=== PATIENT | female | born 1990 | race African-American/Black ===

== ENCOUNTER 2018-07-04 17:43 | Emergency (ER) | payer MEDICAID ==
[~2018-07-04] VITALS: Ht 165.1 cm; Wt 130.0 kg
[2018-07-04] MEDS ORDERED: METF-414 PO (17:50)
[2018-07-04] MEDS ORDERED: INSULIN (17:50)
[2018-07-04] MEDS ORDERED: SODIUM CHLORIDE 0.9% 1,000 ML IV ONE (21:19)
[2018-07-04] MEDS ORDERED: MAGNESIUM/ALUMINUM HYDROXIDE/SIMETHICONE 30ML UDC PO STA (21:19)
[2018-07-04] MEDS ORDERED: KETOROLAC 30MG/ML VIAL IV STA (21:19)
[2018-07-04] MEDS ORDERED: ONDANSETRON HCL 4MG/2ML INJ IV STA (21:19)
[2018-07-04] MEDS ORDERED: FAMOTIDINE 20MG/2ML VIAL IV STA (21:19)
[2018-07-04] MEDS ORDERED: HYDRALAZINE 20MG/ML VIAL IV ONE (21:45)
[2018-07-04 22:03] LABS: BASOPHILS % 0.9 % (0.0-2.0); LYMPHOCYTES % 9.4 % (20.0-50.0); MEAN CORPUSCULAR HEMOGLOBIN 25.2 pg (28.0-32.0); MEAN CORPUSCULAR VOLUME 77.4 fL (81.0-99.0); MEAN PLATELET VOLUME 10.2 fl (7.4-10.4); MONOCYTES % 3.2 % (2.0-8.0); NEUTROPHILS % 86.5 % (40.0-76.0); PLATELET 303 x1000/uL (130-400); RED BLOOD CELL COUNT 5.55 mill/uL (4.2-5.4); RED CELL DISTRIBUTION WIDTH 14.4 % (11.6-14.6)
[2018-07-04 22:09] LABS: CHLORIDE 95 mEq/L (98-107)
[2018-07-04 22:10] LABS: HCG SCREEN NEGATIVE
[2018-07-04] MEDS ORDERED: MORPHINE SULFATE 10 MG/ML CPJ IV NR (23:45)
[2018-07-05] MEDS ORDERED: MORPHINE SULFATE 4 MG/ML CPJ (NOT FOR IM USE) IV ONE
[2018-07-05 00:29] LABS: CLARITY URINE CLOUDY (CLEAR); COLOR URINE ORANGE (YELLOW); KETONES URINE 3+ (NEGATIVE); LEUKOCYTE ESTERASE URINE TRACE (NEGATIVE); NITRITE URINE NEGATIVE (NEGATIVE); OCCULT BLOOD URINE 3+ (NEGATIVE); PROTEIN URINE 2+ (NEGATIVE); SPECIFIC GRAVITY URINE 1.045 (1.005-1.030); UROBILINOGEN URINE 0.2 E.U./dL (0.2-1.0)
[2018-07-05] MEDS ORDERED: ONDANSETRON HCL 4MG/2ML INJ IV ONE (00:45)
[2018-07-05] MEDS ORDERED: CEFTRIAXONE 1 G PREMIX 50 ML IV ONE (00:45)
[2018-07-05 01:57] VITALS: BP 152/87
== END 2018-07-05 01:58 | disposition home or self-care (01) ==
LOC: ER 17:43
DX: N39.0 Urinary tract infection, site not specified (principal); I10 Essential (primary) hypertension; J45.909 Unspecified asthma, uncomplicated; E11.9 Type 2 diabetes mellitus without complications
CPT/HCPCS: 36415; 74177; 76700; 80053; 81003; 81025; 82962; 83690; 84703; 85025; 96361; 96365; 96375; 96376; 99284; J0696; J1885; J2270; J2405; J3490; J7030

== ENCOUNTER 2018-08-25 15:56 | Emergency (ER) | payer MEDICAID ==
[~2018-08-25] VITALS: Ht 167.6 cm; Wt 115.0 kg
[~2018-08-25 15:56] MED LIST: INSULIN; METF-414 PO
[2018-08-25] MEDS ORDERED: HYDR25TA PO (16:11)
[2018-08-25] MEDS ORDERED: ALBU05 IH (16:11)
[2018-08-25] MEDS ORDERED: KETOROLAC 30MG/ML VIAL IV STA (17:12)
[2018-08-25] MEDS ORDERED: SODIUM CHLORIDE 0.9% 1,000 ML IV ONE (17:12)
[2018-08-25] MEDS ORDERED: ONDANSETRON HCL 4MG/2ML INJ IV STA ×2 (17:12→20:21)
[2018-08-25] MEDS ORDERED: LORAZEPAM 2MG/ML CPJ IV ONE (17:30)
[2018-08-25 18:19] LABS: BASOPHILS % 0.4 % (0.0-2.0); CLARITY URINE CLEAR (CLEAR); COLOR URINE YELLOW (YELLOW); EOSINOPHILS % 0.2 % (0.0-5.0); HEMATOCRIT. 41.6 % (36.0-48.0); HEMOGLOBIN. 13.4 g/dL (12.0-16.0); KETONES URINE 1+ (NEGATIVE); LEUKOCYTE ESTERASE URINE NEGATIVE (NEGATIVE); LYMPHOCYTES % 11.5 % (20.0-50.0); MEAN CORPUSCULAR HEMOGLOBIN 25.1 pg (28.0-32.0); MEAN CORPUSCULAR VOLUME 77.6 fL (81.0-99.0); MEAN PLATELET VOLUME 9.7 fl (7.4-10.4); MONOCYTES % 3.4 % (2.0-8.0); NEUTROPHILS % 84.5 % (40.0-76.0); NITRITE URINE NEGATIVE (NEGATIVE); OCCULT BLOOD URINE NEGATIVE (NEGATIVE); PH URINE 7.5 (4.5-8.0); PLATELET 342 x1000/uL (130-400); PROTEIN URINE 2+ (NEGATIVE); RED BLOOD CELL COUNT 5.36 mill/uL (4.2-5.4); RED CELL DISTRIBUTION WIDTH 14.1 % (11.6-14.6); SPECIFIC GRAVITY URINE 1.036 (1.005-1.030); UROBILINOGEN URINE 0.2 E.U./dL (0.2-1.0)
[2018-08-25 18:21] LABS: CHLORIDE 95 mEq/L (98-107)
[2018-08-25 18:25] LABS: PROTHROMBIN TIME 10.1 sec (9.1-11.1)
[2018-08-25 18:30] LABS: *COCAINE SCREEN URINE NEGATIVE (NEGATIVE); METHADONE URINE SCREEN NEGATIVE (NEGATIVE); OPIATES URINE SCREEN NEGATIVE (NEGATIVE); PHENCYCLIDINE URINE SCREEN NEGATIVE (NEGATIVE)
[2018-08-25 18:31] LABS: *AMPHETAMINES SCREEN URINE NEGATIVE (NEGATIVE); *BARBITURATES SCREEN URINE NEGATIVE (NEGATIVE); *BENZODIAZEPINES SCREEN URINE NEGATIVE (NEGATIVE)
[2018-08-25 18:38] LABS: CANNABINOID URINE SCREEN PRESUMTIVE POSITIVE (NEGATIVE)
[2018-08-25] MEDS ORDERED: INSULIN REGULAR (HUMULIN R) 300UNITS/3ML SUBCUT ONE (19:00)
[2018-08-25] MEDS ORDERED: CAPSAICIN 0.075% CREAM 60GM TOP PRN (21:15)
[2018-08-25 22:00] VITALS: BP 147/80
== END 2018-08-25 22:01 | disposition home or self-care (01) ==
LOC: ER 16:37
DX: R10.84 Generalized abdominal pain (principal); F12.10 Cannabis abuse, uncomplicated; E11.65 Type 2 diabetes mellitus with hyperglycemia; I10 Essential (primary) hypertension; R11.10 Vomiting, unspecified; J45.909 Unspecified asthma, uncomplicated
CPT/HCPCS: 36415; 74176; 80053; 80305; 81003; 81025; 83690; 85025; 85610; 96361; 96372; 96374; 96375; 96376; 99284; J1815; J1885; J2060; J2405; J7030; Z7610

== ENCOUNTER 2018-10-01 12:50 | Emergency (ER) | payer MEDICAID, OTHER ==
[~2018-10-01] VITALS: Ht 167.6 cm; Wt 127.0 kg
[~2018-10-01 12:50] MED LIST changes: +ALBU05 IH; +HYDR25TA PO
[2018-10-01] MEDS ORDERED: MORPHINE SULFATE 4 MG/ML CPJ (NOT FOR IM USE) IV STA (12:59)
[2018-10-01] MEDS ORDERED: FAMOTIDINE 20MG/2ML VIAL IV STA (12:59)
[2018-10-01] MEDS ORDERED: ONDANSETRON HCL 4MG/2ML INJ IV STA (12:59)
[2018-10-01] MEDS ORDERED: SODIUM CHLORIDE 0.9% 1,000 ML IV ONE (12:59)
[2018-10-01 13:22] LABS: BASOPHILS % 0.5 % (0.0-2.0); EOSINOPHILS % 0.1 % (0.0-5.0); HEMATOCRIT. 37.4 % (36.0-48.0); HEMOGLOBIN. 12.3 g/dL (12.0-16.0); LYMPHOCYTES % 15.7 % (20.0-50.0); MEAN CORPUSCULAR HEMOGLOBIN 24.6 pg (28.0-32.0); MEAN PLATELET VOLUME 9.1 fl (7.4-10.4); MONOCYTES % 7.4 % (2.0-8.0); NEUTROPHILS % 76.3 % (40.0-76.0); PLATELET 261 x1000/uL (130-400); RED BLOOD CELL COUNT 4.99 mill/uL (4.2-5.4)
[2018-10-01 13:27] LABS: CHLORIDE 93 mEq/L (98-107)
[2018-10-01 13:31] LABS: ETHANOL BLOOD < 10 mg/dL; INR 1.1; PROTHROMBIN TIME 10.7 sec (9.1-11.1)
[2018-10-01 13:42] LABS: HCG SCREEN NEGATIVE
[2018-10-01 14:48] LABS: CLARITY URINE CLOUDY (CLEAR); COLOR URINE YELLOW (YELLOW); KETONES URINE TRACE (NEGATIVE); LEUKOCYTE ESTERASE URINE 2+ (NEGATIVE); NITRITE URINE NEGATIVE (NEGATIVE); OCCULT BLOOD URINE 3+ (NEGATIVE); PH URINE 8.5 (4.5-8.0); PROTEIN URINE 1+ (NEGATIVE); SPECIFIC GRAVITY URINE 1.013 (1.005-1.030); UROBILINOGEN URINE 0.2 E.U./dL (0.2-1.0)
[2018-10-01 15:30] LABS: *AMPHETAMINES SCREEN URINE NEGATIVE (NEGATIVE); *BARBITURATES SCREEN URINE NEGATIVE (NEGATIVE); *BENZODIAZEPINES SCREEN URINE NEGATIVE (NEGATIVE); *COCAINE SCREEN URINE NEGATIVE (NEGATIVE); METHADONE URINE SCREEN NEGATIVE (NEGATIVE); OPIATES URINE SCREEN NEGATIVE (NEGATIVE)
[2018-10-01 15:31] LABS: CANNABINOID URINE SCREEN NEGATIVE (NEGATIVE); PHENCYCLIDINE URINE SCREEN NEGATIVE (NEGATIVE)
[2018-10-01] MEDS ORDERED: VISCOUS LIDOCAINE 2% 15 ML UDC MM STA (16:14)
[2018-10-01] MEDS ORDERED: CEFTRIAXONE 1 G PREMIX 50 ML IV ONE (16:15)
[2018-10-01] MEDS ORDERED: MAGNESIUM/ALUMINUM HYDROXIDE/SIMETHICONE 30ML UDC PO ONE (16:15)
[2018-10-01] MEDS ORDERED: MORPHINE SULFATE 4 MG/ML CPJ (NOT FOR IM USE) IV ONE (17:15)
[2018-10-01] MEDS ORDERED: ONDANSETRON HCL 4MG/2ML INJ IV ONE (17:15)
[2018-10-01 19:07] VITALS: BP 129/91
== END 2018-10-01 19:11 | disposition home or self-care (01) ==
LOC: ER 12:50
DX: R10.13 Epigastric pain (principal); N39.0 Urinary tract infection, site not specified; E87.8 Other disorders of electrolyte and fluid balance, not elsewhere classified; I10 Essential (primary) hypertension; E11.9 Type 2 diabetes mellitus without complications; J45.909 Unspecified asthma, uncomplicated; E66.01 Morbid (severe) obesity due to excess calories; Z68.42 Body mass index [BMI] 45.0-49.9, adult; Z79.4 Long term (current) use of insulin; Z87.19 Personal history of other diseases of the digestive system
CPT/HCPCS: 36415; 74022; 76705; 80053; 80305; 80320; 81003; 81025; 83690; 83880; 84484; 84703; 85025; 85610; 87077; 87086; 87186; 93005; 96361; 96365; 96375; 96376; 99284; J0696; J2270; J2405; J3490; J7030; G0480

== ENCOUNTER 2018-10-28 12:29 | Emergency (ER) | payer OTHER ==
[~2018-10-28] VITALS: Ht 165.1 cm; Wt 103.0 kg
[2018-10-28 13:20] LABS: BASOPHILS % 0.5 % (0.0-2.0); EOSINOPHILS % 0.2 % (0.0-5.0); HEMATOCRIT. 37.4 % (36.0-48.0); HEMOGLOBIN. 12.2 g/dL (12.0-16.0); MEAN CORPUSCULAR HEMOGLOBIN 24.4 pg (28.0-32.0); MEAN CORPUSCULAR VOLUME 74.7 fL (81.0-99.0); MEAN PLATELET VOLUME 9.2 fl (7.4-10.4); MONOCYTES % 6.1 % (2.0-8.0); NEUTROPHILS % 79.2 % (40.0-76.0); PLATELET 312 x1000/uL (130-400); RED BLOOD CELL COUNT 5.01 mill/uL (4.2-5.4); RED CELL DISTRIBUTION WIDTH 15.3 % (11.6-14.6)
[2018-10-28 13:23] LABS: CHLORIDE 98 mEq/L (98-107)
[2018-10-28] MEDS ORDERED: SODIUM CHLORIDE 0.9% 1,000 ML IV ONE (13:30)
[2018-10-28] MEDS ORDERED: ONDANSETRON HCL 4MG/2ML INJ IV ONE ×2 (13:30→17:45)
[2018-10-28 13:37] LABS: HCG SCREEN NEGATIVE
[2018-10-28] MEDS ORDERED: DICYCLOMINE HCL 10MG/ML 2ML AMP IM ONE (14:00)
[2018-10-28] MEDS ORDERED: METOCLOPRAMIDE HCL 10MG/2ML VIAL IV ONE (14:00)
[2018-10-28] MEDS ORDERED: DIPHENHYDRAMINE 50MG/ML VIAL IV ONE (14:00)
[2018-10-28 14:56] LABS: CLARITY URINE CLOUDY (CLEAR); COLOR URINE YELLOW (YELLOW); KETONES URINE 1+ (NEGATIVE); LEUKOCYTE ESTERASE URINE NEGATIVE (NEGATIVE); NITRITE URINE NEGATIVE (NEGATIVE); OCCULT BLOOD URINE 3+ (NEGATIVE); PH URINE 5.5 (4.5-8.0); PROTEIN URINE 2+ (NEGATIVE); SPECIFIC GRAVITY URINE 1.036 (1.005-1.030); UROBILINOGEN URINE 0.2 E.U./dL (0.2-1.0)
[2018-10-28 15:16] LABS: *AMPHETAMINES SCREEN URINE NEGATIVE (NEGATIVE); *BARBITURATES SCREEN URINE NEGATIVE (NEGATIVE); *BENZODIAZEPINES SCREEN URINE NEGATIVE (NEGATIVE); *COCAINE SCREEN URINE NEGATIVE (NEGATIVE); METHADONE URINE SCREEN NEGATIVE (NEGATIVE); OPIATES URINE SCREEN NEGATIVE (NEGATIVE)
[2018-10-28 15:17] LABS: PHENCYCLIDINE URINE SCREEN NEGATIVE (NEGATIVE)
[2018-10-28 15:36] LABS: CANNABINOID URINE SCREEN PRESUMTIVE POSITIVE (NEGATIVE)
[2018-10-28] MEDS ORDERED: LIDOCAINE HCL/PF 1% 10 MG/ML 5ML VIAL IJ SCH (16:00)
[2018-10-28] MEDS: CEFTRIAXONE SODIUM 1 G/VIAL IM NR (16:22)
[2018-10-28] MEDS ORDERED: PANTOPRAZOLE SODIUM 40 MG/VIAL IV ONE (17:45)
[2018-10-28 18:19] VITALS: BP 196/122
== END 2018-10-28 18:50 | disposition home or self-care (01) ==
LOC: ER 12:29
DX: G89.29 Other chronic pain (principal); R10.84 Generalized abdominal pain; N39.0 Urinary tract infection, site not specified; E11.65 Type 2 diabetes mellitus with hyperglycemia; F12.10 Cannabis abuse, uncomplicated; E88.09 Other disorders of plasma-protein metabolism, not elsewhere classified; R31.9 Hematuria, unspecified; I10 Essential (primary) hypertension; Z79.4 Long term (current) use of insulin
CPT/HCPCS: 36415; 80053; 80305; 81003; 83690; 84703; 85025; 85610; 96361; 96372; 96374; 96375; 99283; C9113; J0500; J0696; J1200; J2405; J2765; J3490; J7030; Z7610

== ENCOUNTER 2018-12-03 17:47 | Emergency (ER) | payer OTHER ==
[~2018-12-03] VITALS: Ht 170.2 cm; Wt 100.0 kg
[2018-12-03] MEDS ORDERED: ONDANSETRON HCL 4MG/2ML INJ IV STA (18:05)
[2018-12-03] MEDS ORDERED: SODIUM CHLORIDE 0.9% 1,000 ML IV ONE (18:05)
[2018-12-03 18:28] LABS: BASOPHILS % 1.3 % (0.0-2.0); EOSINOPHILS % 0.3 % (0.0-5.0); HEMATOCRIT. 37.8 % (36.0-48.0); HEMOGLOBIN. 11.7 g/dL (12.0-16.0); LYMPHOCYTES % 24.3 % (20.0-50.0); MEAN CORPUSCULAR HEMOGLOBIN 22.6 pg (28.0-32.0); MEAN CORPUSCULAR VOLUME 73.3 fL (81.0-99.0); MONOCYTES % 8.5 % (2.0-8.0); NEUTROPHILS % 65.6 % (40.0-76.0); RED BLOOD CELL COUNT 5.16 mill/uL (4.2-5.4); RED CELL DISTRIBUTION WIDTH 15.3 % (11.6-14.6)
[2018-12-03 18:32] LABS: CHLORIDE 101 mEq/L (98-107)
[2018-12-03] MEDS ORDERED: FAMOTIDINE 20MG/2ML VIAL IV STA (19:00)
[2018-12-03] MEDS ORDERED: VISCOUS LIDOCAINE 2% 15 ML UDC PO STA (19:00)
[2018-12-03] MEDS ORDERED: MAGNESIUM/ALUMINUM HYDROXIDE/SIMETHICONE 30ML UDC PO STA (19:00)
[2018-12-03] MEDS ORDERED: INSULIN REGULAR (HUMULIN R) 300UNITS/3ML SUBCUT ONE (21:15)
[2018-12-03 22:06] VITALS: BP 100/55
== END 2018-12-03 22:29 | disposition home or self-care (01) ==
LOC: ER 17:55
DX: R10.13 Epigastric pain (principal); E11.65 Type 2 diabetes mellitus with hyperglycemia; I10 Essential (primary) hypertension; J45.909 Unspecified asthma, uncomplicated; F99 Mental disorder, not otherwise specified; Z79.4 Long term (current) use of insulin; Z91.14 Patient's other noncompliance with medication regimen
CPT/HCPCS: 36415; 80053; 82962; 83690; 85025; 96361; 96372; 96374; 96375; 99283; J1815; J2405; J3490; J7030; Z7610

== ENCOUNTER 2018-12-16 12:11 | Emergency (ER) | payer OTHER ==
[~2018-12-16] VITALS: Ht 162.6 cm; Wt 120.0 kg
[2018-12-16] MEDS ORDERED: SODIUM CHLORIDE 0.9% 1,000 ML IV ONE (16:15)
[2018-12-16 16:21] LABS: CHLORIDE 100 mEq/L (98-107)
[2018-12-16 16:25] LABS: BASOPHILS % 0.5 % (0.0-2.0); EOSINOPHILS % 0.4 % (0.0-5.0); HEMATOCRIT. 40.8 % (36.0-48.0); HEMOGLOBIN. 13.5 g/dL (12.0-16.0); LYMPHOCYTES % 17.8 % (20.0-50.0); MEAN CORPUSCULAR HEMOGLOBIN 24.4 pg (28.0-32.0); MEAN PLATELET VOLUME 9.4 fl (7.4-10.4); MONOCYTES % 8.2 % (2.0-8.0); NEUTROPHILS % 73.1 % (40.0-76.0); PLATELET 274 x1000/uL (130-400); RED BLOOD CELL COUNT 5.51 mill/uL (4.2-5.4); RED CELL DISTRIBUTION WIDTH 15.4 % (11.6-14.6)
[2018-12-16] MEDS ORDERED: ONDANSETRON HCL 4MG/2ML INJ IV ONE ×2 (16:45→19:30)
[2018-12-16] MEDS: FAMOTIDINE 20MG/2ML VIAL IV SCH ×2 (16:58→17:34)
[2018-12-16] MEDS ORDERED: INSULIN REGULAR (HUMULIN R) 300UNITS/3ML IV ONE (17:00)
[2018-12-16] MEDS ORDERED: TRAMADOL 50MG TABLET PO ONE (17:30)
[2018-12-16] MEDS ORDERED: KETOROLAC 30MG/ML VIAL IV ONE (17:30)
[2018-12-16] MEDS ORDERED: OXYCODONE HCL/ACETAMINOPHEN 5/325MG TABLET PO ONE (18:00)
[2018-12-16] MEDS ORDERED: CLONIDINE 0.2MG TABLET PO ONE (19:15)
[2018-12-16] MEDS ORDERED: METOCLOPRAMIDE HCL 10MG/2ML VIAL IV ONE (21:00)
[2018-12-16] MEDS ORDERED: IOHEXOL-300 100 ML BOTTLE ONE (23:00)
[2018-12-17 02:20] VITALS: BP 119/80
== END 2018-12-17 02:19 | disposition short-term general hospital (02) ==
LOC: ER 12:11 → CANBEDREQ 19:21 → ER 12-17 02:19
DX: E11.65 Type 2 diabetes mellitus with hyperglycemia (principal); I10 Essential (primary) hypertension; E86.0 Dehydration; J45.909 Unspecified asthma, uncomplicated; Z79.84 Long term (current) use of oral hypoglycemic drugs; Z91.14 Patient's other noncompliance with medication regimen
CPT/HCPCS: 36415; 74177; 80053; 81025; 82962; 83605; 85025; 96361; 96374; 96375; 96376; 99285; J1815; J1885; J2405; J2765; J3490; J7030; Q9967

== ENCOUNTER 2019-01-25 04:15 | Emergency (ER) | payer OTHER ==
[~2019-01-25] VITALS: Ht 167.6 cm; Wt 104.0 kg
[2019-01-25] MEDS ORDERED: VISCOUS LIDOCAINE 2% 15 ML UDC PO STA (06:16)
[2019-01-25] MEDS ORDERED: ONDANSETRON HCL 4MG/2ML INJ IV STA (06:16)
[2019-01-25] MEDS ORDERED: FAMOTIDINE 20MG/2ML VIAL IV STA (06:16)
[2019-01-25] MEDS ORDERED: MAGNESIUM/ALUMINUM HYDROXIDE/SIMETHICONE 30ML UDC PO STA (06:16)
[2019-01-25] MEDS ORDERED: DICYCLOMINE 10 MG/5 ML ORAL SYR PO STA (06:16)
[2019-01-25] MEDS ORDERED: MORPHINE SULFATE 4 MG/ML CPJ (NOT FOR IM USE) IV STA (06:16)
[2019-01-25 06:40] LABS: CLARITY URINE CLOUDY (CLEAR); COLOR URINE YELLOW (YELLOW); KETONES URINE 1+ (NEGATIVE); LEUKOCYTE ESTERASE URINE NEGATIVE (NEGATIVE); NITRITE URINE NEGATIVE (NEGATIVE); OCCULT BLOOD URINE 1+ (NEGATIVE); PROTEIN URINE 2+ (NEGATIVE); SPECIFIC GRAVITY URINE 1.026 (1.005-1.030); UROBILINOGEN URINE 0.2 E.U./dL (0.2-1.0)
[2019-01-25] MEDS ORDERED: KETOROLAC 30MG/ML VIAL IV ONE (08:15)
[2019-01-25 08:18] LABS: BASOPHILS % 0.5 % (0.0-2.0); HEMATOCRIT. 38.5 % (36.0-48.0); HEMOGLOBIN. 12.4 g/dL (12.0-16.0); MEAN CORPUSCULAR HEMOGLOBIN 23.8 pg (28.0-32.0); MEAN CORPUSCULAR VOLUME 73.9 fL (81.0-99.0); MEAN PLATELET VOLUME 9.3 fl (7.4-10.4); MONOCYTES % 5.5 % (2.0-8.0); PLATELET 255 x1000/uL (130-400); RED BLOOD CELL COUNT 5.21 mill/uL (4.2-5.4); RED CELL DISTRIBUTION WIDTH 15.1 % (11.6-14.6)
[2019-01-25 08:20] LABS: CHLORIDE 97 mEq/L (98-107)
[2019-01-25 08:23] LABS: HCG SCREEN NEGATIVE; PROTHROMBIN TIME 10.4 sec (9.6-11.0)
[2019-01-25 09:05] VITALS: BP 174/98
== END 2019-01-25 09:11 | disposition home or self-care (01) ==
LOC: ER 04:15
DX: N39.0 Urinary tract infection, site not specified (principal); R10.11 Right upper quadrant pain; I10 Essential (primary) hypertension; E11.9 Type 2 diabetes mellitus without complications; J45.909 Unspecified asthma, uncomplicated; Z79.4 Long term (current) use of insulin
CPT/HCPCS: 36415; 74176; 80053; 81003; 81025; 83690; 84703; 85025; 85610; 96374; 96375; 99284; J1885; J2270; J2405; J3490; Z7610

== ENCOUNTER 2019-08-05 21:37 | Inpatient (IN) | payer OTHER ==
[~2019-08-05] VITALS: Ht 160 cm; Wt 92.1 kg
[2019-08-05] MEDS ORDERED: SODIUM CHLORIDE 0.9% 1,000 ML IV ONE (22:36)
[2019-08-05] MEDS ORDERED: ONDANSETRON HCL 4MG/2ML INJ IV STA (22:36)
[2019-08-05] MEDS ORDERED: HYDRALAZINE 20MG/ML VIAL IV ONE (22:45)
[2019-08-05] MEDS ORDERED: ONDANSETRON HCL 4MG/2ML INJ IV ONE (23:00)
[2019-08-05] MEDS ORDERED: METOCLOPRAMIDE HCL 10MG/2ML VIAL IV ONE (23:00)
[2019-08-05 23:02] LABS: BASOPHILS % 0.9 % (0.0-2.0); EOSINOPHILS % 0.6 % (0.0-5.0); HCG SCREEN NEGATIVE; HEMATOCRIT. 34.3 % (36.0-48.0); HEMOGLOBIN. 11.3 g/dL (12.0-16.0); LYMPHOCYTES % 17.9 % (20.0-50.0); MEAN CORPUSCULAR HEMOGLOBIN 24.2 pg (28.0-32.0); MEAN CORPUSCULAR VOLUME 73.4 fL (81.0-99.0); MEAN PLATELET VOLUME 9.6 fl (7.4-10.4); MONOCYTES % 6.9 % (2.0-8.0); NEUTROPHILS % 73.7 % (40.0-76.0); PLATELET 214 x1000/uL (130-400); RED BLOOD CELL COUNT 4.67 mill/uL (4.2-5.4); RED CELL DISTRIBUTION WIDTH 14.7 % (11.6-14.6)
[2019-08-05 23:03] LABS: CLARITY URINE CLEAR (CLEAR); COLOR URINE YELLOW (YELLOW); KETONES URINE NEGATIVE (NEGATIVE); LEUKOCYTE ESTERASE URINE NEGATIVE (NEGATIVE); NITRITE URINE NEGATIVE (NEGATIVE); OCCULT BLOOD URINE TRACE (NEGATIVE); PH URINE >=9.0 (4.5-8.0); PROTEIN URINE 3+ (NEGATIVE); SPECIFIC GRAVITY URINE 1.014 (1.005-1.030); UROBILINOGEN URINE 0.2 E.U./dL (0.2-1.0)
[2019-08-05 23:07] LABS: CHLORIDE 99 mEq/L (98-107)
[2019-08-05 23:25] LABS: METHADONE URINE SCREEN NEGATIVE (NEGATIVE)
[2019-08-05 23:26] LABS: *AMPHETAMINES SCREEN URINE NEGATIVE (NEGATIVE); *BARBITURATES SCREEN URINE NEGATIVE (NEGATIVE); *BENZODIAZEPINES SCREEN URINE NEGATIVE (NEGATIVE); *COCAINE SCREEN URINE NEGATIVE (NEGATIVE); OPIATES URINE SCREEN NEGATIVE (NEGATIVE); PHENCYCLIDINE URINE SCREEN NEGATIVE (NEGATIVE)
[2019-08-05 23:28] LABS: CANNABINOID URINE SCREEN PRESUMTIVE POSITIVE (NEGATIVE)
[2019-08-06] VITALS (7 sets, daily range): BP systolic 119–174; BP diastolic 49–121
[2019-08-06] MEDS ORDERED: LABETALOL 5MG/ML SYR 20 MG/4 ML SYRINGE IV ONE (00:45)
[2019-08-06] MEDS ORDERED: LORAZEPAM 2MG/ML CPJ IV PRN (08:15)
[2019-08-06] MEDS ORDERED: MAGNESIUM/ALUMINUM HYDROXIDE/SIMETHICONE 30ML UDC PO PRN (08:15)
[2019-08-06] MEDS ORDERED: ONDANSETRON HCL 4MG/2ML INJ IV PRN (08:15)
[2019-08-06] MEDS ORDERED: IPRATROPIUM/ALBUTEROL 0.5-3(2.5)MG/3ML NEB NEB PRN (08:15)
[2019-08-06] MEDS ORDERED: GUAIFENESIN 200MG/10ML SUGAR FREE UDC PO PRN (08:15)
[2019-08-06] MEDS ORDERED: ACETAMINOPHEN 325MG TABLET PO PRN (08:15)
[2019-08-06] MEDS ORDERED: DIPHENHYDRAMINE 50MG/ML VIAL IV PRN (08:15)
[2019-08-06] MEDS ORDERED: CLONIDINE 0.1MG TABLET PO PRN (08:15)
[2019-08-06] MEDS ORDERED: ENOXAPARIN 40MG/0.4ML SYR SUBCUT SCH (08:15)
[2019-08-06] MEDS ORDERED: SODIUM CHLORIDE 0.45% 1,000 ML IV SCH (11:00)
[2019-08-06] MEDS ORDERED: ASPIRIN 81MG EC TABLET PO SCH (11:00)
[2019-08-06] MEDS: HYDROCODONE/ACETAMINOPHEN 5/325MG TABLET PO PRN ×2 (11:47→16:01)
[2019-08-06] MEDS: NA PHOS,M-B/NA PHOS,DI-BA ENEMA 118ML PR PRN (11:48)
[2019-08-06] MEDS: ENOXAPARIN 30MG/0.3ML SYR SUBCUT SCH ×2 (11:48→20:58)
[2019-08-06] MEDS ORDERED: HYDROCHLOROTHIAZIDE 12.5MG CAPSULE PO SCH (12:15)
[2019-08-06] MEDS ORDERED: LOSARTAN POTASSIUM 50 MG TABLET PO SCH (12:15)
[2019-08-06] MEDS: DOCUSATE SODIUM 100MG CAPSULE PO PRN ×2 (12:39→21:09)
[2019-08-06] MEDS: MORPHINE SULFATE 2 MG/ML CPJ (NOT FOR IM USE) IV PRN ×2 (12:49→21:08)
[2019-08-06 16:32] LABS: CHLORIDE 99 mEq/L (98-107)
[2019-08-06] MEDS ORDERED: DEXTROSE 50% WATER 50ML SYRINGE IV PRN (16:45)
[2019-08-06] MEDS ORDERED: SORBITOL 70% SOLN 30ML PO NR (17:15)
[2019-08-06] MEDS: METOCLOPRAMIDE HCL 10MG/2ML VIAL IV SCH ×2 (17:44→23:26)
[2019-08-06] MEDS: BLOOD SUGAR DIAGNOSTIC STRIP TEST SCH ×2 (17:50→21:03)
[2019-08-06] MEDS: INSULIN LISPRO 100 UNITS/ML SUBCUT SCH ×2 (17:53→21:09)
[2019-08-07] MEDS: NA PHOS,M-B/NA PHOS,DI-BA ENEMA 118ML PR PRN (05:44)
[2019-08-07] MEDS: METOCLOPRAMIDE HCL 10MG/2ML VIAL IV SCH (05:44)
[2019-08-07 06:00] VITALS: BP 104/96
== END 2019-08-07 06:00 | disposition left against medical advice (07) | DRG 48 ==
LOC: ER 21:37 → 5EST 08-06 00:38 → EDBEDREQSVC 08-06 01:41 → EDBEDREQTM 08-06 01:41 → EDBEDREQ 08-06 01:41 → ENRESERV 08-06 07:53
PROVIDERS: ADMIT Internal Medicine; ATTEND Internal Medicine
DX: E11.43 Type 2 diabetes mellitus with diabetic autonomic (poly)neuropathy (principal); I11.9 Hypertensive heart disease without heart failure; K31.84 Gastroparesis; K56.41 Fecal impaction; I16.0 Hypertensive urgency; D64.9 Anemia, unspecified; E66.9 Obesity, unspecified; E78.5 Hyperlipidemia, unspecified; E86.0 Dehydration; I88.0 Nonspecific mesenteric lymphadenitis; J45.909 Unspecified asthma, uncomplicated; Z60.2 Problems related to living alone; Z53.29 Procedure and treatment not carried out because of patient's decision for other reasons; Z79.4 Long term (current) use of insulin; Z79.899 Other long term (current) drug therapy; Z68.36 Body mass index [BMI] 36.0-36.9, adult; Z79.84 Long term (current) use of oral hypoglycemic drugs
CPT/HCPCS: 36415; 71045; 74176; 80048; 80053; 80305; 81003; 82962; 83880; 84484; 84703; 85025; 93005; 99291; J0360; J1650; J1815; J2270; J2405; J2765; J3490; J7030

== ENCOUNTER 2019-08-21 17:47 | Emergency (ER) | payer OTHER ==
[~2019-08-21] VITALS: Ht 160 cm; Wt 100.0 kg
[2019-08-22 00:54] VITALS: BP 161/84
[2019-08-22] MEDS ORDERED: ALPRAZOLAM 0.5 MG TABLET PO ONE (01:15)
== END 2019-08-22 01:19 | disposition home or self-care (01) ==
LOC: ER 17:47
DX: F41.8 Other specified anxiety disorders (principal); J45.909 Unspecified asthma, uncomplicated; I10 Essential (primary) hypertension; Z79.899 Other long term (current) drug therapy
CPT/HCPCS: 99283

== ENCOUNTER 2020-02-02 09:35 | Inpatient (IN) | payer OTHER ==
[~2020-02-02] VITALS: Ht 160 cm; Wt 118.4 kg
[2020-02-02] MEDS ORDERED: ONDANSETRON HCL 4MG/2ML INJ IV STA ×2 (09:59→12:04)
[2020-02-02] MEDS ORDERED: MORPHINE SULFATE 4 MG/ML CPJ (NOT FOR IM USE) IV STA ×2 (09:59→12:04)
[2020-02-02] MEDS ORDERED: SODIUM CHLORIDE 0.9% 1,000 ML IV ONE ×2 (09:59→12:04)
[2020-02-02 10:42] LABS: BASOPHILS % 1.1 % (0.0-2.0); HEMATOCRIT. 37.9 % (36.0-48.0); HEMOGLOBIN. 12.5 g/dL (12.0-16.0); LYMPHOCYTES % 10.9 % (20.0-50.0); MEAN CORPUSCULAR HEMOGLOBIN 24.1 pg (28.0-32.0); MEAN CORPUSCULAR VOLUME 72.9 fL (81.0-99.0); MEAN PLATELET VOLUME 9.6 fl (7.4-10.4); MONOCYTES % 3.1 % (2.0-8.0); NEUTROPHILS % 84.9 % (40.0-76.0); PLATELET 239 x1000/uL (130-400); RED BLOOD CELL COUNT 5.19 mill/uL (4.2-5.4); RED CELL DISTRIBUTION WIDTH 14.8 % (11.6-14.6)
[2020-02-02 10:49] LABS: CHLORIDE 95 mEq/L (98-107)
[2020-02-02 10:54] LABS: PARTIAL THROMBOPLASTIN TIME 27.3 sec (23.4-31.0); PROTHROMBIN TIME 10.3 sec (9.6-11.0)
[2020-02-02 10:56] LABS: HCG SCREEN NEGATIVE
[2020-02-02] MEDS ORDERED: IOHEXOL-300 100 ML BOTTLE ONE (11:28)
[2020-02-02 12:00] LABS: CLARITY URINE CLEAR (CLEAR); COLOR URINE YELLOW (YELLOW); KETONES URINE TRACE (NEGATIVE); LEUKOCYTE ESTERASE URINE NEGATIVE (NEGATIVE); NITRITE URINE POSITIVE (NEGATIVE); OCCULT BLOOD URINE 2+ (NEGATIVE); PH URINE 8.5 (4.5-8.0); PROTEIN URINE 3+ (NEGATIVE); SPECIFIC GRAVITY URINE 1.048 (1.005-1.030)
[2020-02-02] MEDS ORDERED: HYDRALAZINE 20MG/ML VIAL IV ONE (12:15)
[2020-02-02] MEDS ORDERED: FAMOTIDINE 20MG/2ML VIAL IV ONE (12:15)
[2020-02-02] MEDS ORDERED: CEFTRIAXONE 1 G PREMIX 50 ML IV ONE (13:00)
[2020-02-02] MEDS ORDERED: PANTOPRAZOLE SODIUM 40 MG/VIAL IV ONE (13:00)
[2020-02-02 16:00] VITALS: BP 163/96
[2020-02-02] MEDS ORDERED: ONDANSETRON HCL 4MG/2ML INJ IV PRN (16:00)
[2020-02-02] MEDS ORDERED: HYDRALAZINE 20MG/ML VIAL IV NR (16:00)
[2020-02-02] MEDS: BISACODYL 10MG SUPP PR NR ×3 (16:00→18:12)
[2020-02-02] MEDS ORDERED: HYDRALAZINE 20MG/ML VIAL IV PRN (16:00)
[2020-02-02] MEDS ORDERED: DEXTROSE 50% WATER 50ML SYRINGE IV PRN (16:45)
[2020-02-02 17:06] VITALS: BP 163/96
[2020-02-02] MEDS ORDERED: LABETALOL 5MG/ML SYR 20 MG/4 ML SYRINGE IV PRN (17:30)
[2020-02-02] MEDS: METOCLOPRAMIDE HCL 10MG/2ML VIAL IV SCH (17:34)
[2020-02-02] MEDS: SODIUM CHLORIDE 0.9% 1,000 ML IV SCH (17:35)
[2020-02-02] MEDS: BLOOD SUGAR DIAGNOSTIC STRIP TEST SCH ×2 (17:42→21:25)
[2020-02-02] MEDS: MORPHINE SULFATE 2 MG/ML CPJ (NOT FOR IM USE) IV PRN (17:59)
[2020-02-02] MEDS: INSULIN LISPRO 100 UNITS/ML SUBCUT SCH ×2 (17:59→21:53)
[2020-02-02] MEDS ORDERED: CLONIDINE 0.1MG TABLET PO PRN (18:45)
[2020-02-02] MEDS ORDERED: LOSARTAN POTASSIUM 50 MG TABLET PO SCH (19:00)
[2020-02-02 20:00] VITALS: BP 135/90
[2020-02-02] MEDS ORDERED: INSULIN GLARGINE UD 100 UNITS/ML SYR SUBCUT SCH (22:00)
[2020-02-02] MEDS ORDERED: CLONIDINE 0.1MG TABLET PO SCH (22:00)
[2020-02-03] VITALS: BP 113/70
[2020-02-03] MEDS: MORPHINE SULFATE 2 MG/ML CPJ (NOT FOR IM USE) IV PRN (00:03)
[2020-02-03] MEDS: METOCLOPRAMIDE HCL 10MG/2ML VIAL IV SCH ×2 (00:03→05:23)
[2020-02-03 04:00] VITALS: BP 114/57
[2020-02-03] MEDS: BLOOD SUGAR DIAGNOSTIC STRIP TEST SCH (06:23)
[2020-02-03] MEDS: INSULIN LISPRO 100 UNITS/ML SUBCUT SCH (06:24)
[2020-02-03 06:55] LABS: BASOPHILS % 0.5 % (0.0-2.0); EOSINOPHILS % 0.5 % (0.0-5.0); HEMOGLOBIN. 11.4 g/dL (12.0-16.0); LYMPHOCYTES % 23.6 % (20.0-50.0); MEAN CORPUSCULAR HEMOGLOBIN 23.6 pg (28.0-32.0); MEAN CORPUSCULAR VOLUME 72.4 fL (81.0-99.0); MEAN PLATELET VOLUME 9.3 fl (7.4-10.4); MONOCYTES % 13.3 % (2.0-8.0); NEUTROPHILS % 62.1 % (40.0-76.0); PLATELET 264 x1000/uL (130-400); RED BLOOD CELL COUNT 4.83 mill/uL (4.2-5.4)
[2020-02-03 07:06] LABS: CHLORIDE 100 mEq/L (98-107)
[2020-02-03 08:00] VITALS: BP 98/62
[2020-02-03] MEDS: SODIUM CHLORIDE 0.9% 1,000 ML IV SCH (08:01)
[2020-02-03] MEDS ORDERED: PANTOPRAZOLE SODIUM 40 MG/VIAL IV SCH (09:00)
[2020-02-03] MEDS ORDERED: CEFTRIAXONE 1 G PREMIX 50 ML IV SCH (13:00)
[2020-02-03] MEDS ORDERED: CEFTRIAXONE 1,000 MG in DEXTROSE 5% WATER 50 ML IV SCH (13:00)
== END 2020-02-03 09:35 | disposition left against medical advice (07) | DRG 251 ==
LOC: ER 09:35 → 8WST 13:37 → EDBEDREQTM 13:39 → EDBEDREQ 13:39 → ENRESERV 14:47 → ER 15:40
PROVIDERS: ADMIT Internal Medicine; ATTEND Internal Medicine
DX: R10.9 Unspecified abdominal pain (principal); I16.0 Hypertensive urgency; E11.43 Type 2 diabetes mellitus with diabetic autonomic (poly)neuropathy; E11.65 Type 2 diabetes mellitus with hyperglycemia; E43 Unspecified severe protein-calorie malnutrition; E66.01 Morbid (severe) obesity due to excess calories; E87.1 Hypo-osmolality and hyponatremia; E87.8 Other disorders of electrolyte and fluid balance, not elsewhere classified; K31.84 Gastroparesis; J45.909 Unspecified asthma, uncomplicated; K56.41 Fecal impaction; I10 Essential (primary) hypertension; Z53.21 Procedure and treatment not carried out due to patient leaving prior to being seen by health care provider; K92.0 Hematemesis; N39.0 Urinary tract infection, site not specified; Z79.899 Other long term (current) drug therapy; Z79.84 Long term (current) use of oral hypoglycemic drugs; Z68.42 Body mass index [BMI] 45.0-49.9, adult
CPT/HCPCS: 36415; 71045; 74177; 80048; 80053; 81003; 82962; 83036; 84484; 84703; 85025; 86850; 86900; 93005; 93970; 99285; C9113; J0360; J0696; J1815; J2270; J2405; J2765; J3490; J7030; J7060; Q9967

== ENCOUNTER 2020-04-25 13:17 | Emergency (ER) | payer MEDICAID, OTHER ==
[~2020-04-25] VITALS: Ht 170.2 cm; Wt 54.0 kg
[2020-04-25] MEDS ORDERED: ACETAMINOPHEN 325MG TABLET PO STA (13:55)
[2020-04-25 14:50] LABS: BASOPHILS % 0.6 % (0.0-2.0); EOSINOPHILS % 0.7 % (0.0-5.0); HEMATOCRIT. 31.9 % (36.0-48.0); HEMOGLOBIN. 10.5 g/dL (12.0-16.0); LYMPHOCYTES % 24.7 % (20.0-50.0); MEAN CORPUSCULAR HEMOGLOBIN 24.8 pg (28.0-32.0); MEAN CORPUSCULAR VOLUME 75.3 fL (81.0-99.0); MEAN PLATELET VOLUME 9.2 fl (7.4-10.4); MONOCYTES % 11.5 % (2.0-8.0); NEUTROPHILS % 62.5 % (40.0-76.0); PLATELET 173 x1000/uL (130-400); RED BLOOD CELL COUNT 4.24 mill/uL (4.2-5.4); RED CELL DISTRIBUTION WIDTH 15.8 % (11.6-14.6)
[2020-04-25 14:56] LABS: CHLORIDE 104 mEq/L (98-107)
[2020-04-25 15:21] LABS: B-HCG QUANTITATIVE 4608 mIU/mL (<3)
[2020-04-25 15:35] LABS: CLARITY URINE CLEAR (CLEAR); COLOR URINE ORANGE (YELLOW); KETONES URINE NEGATIVE (NEGATIVE); LEUKOCYTE ESTERASE URINE NEGATIVE (NEGATIVE); NITRITE URINE NEGATIVE (NEGATIVE); OCCULT BLOOD URINE 3+ (NEGATIVE); PH URINE 6.5 (4.5-8.0); PROTEIN URINE 3+ (NEGATIVE); SPECIFIC GRAVITY URINE 1.018 (1.005-1.030)
[2020-04-25 16:00] VITALS: BP 167/99
== END 2020-04-25 18:08 | disposition home or self-care (01) ==
LOC: ER 13:35
DX: O26.891 Other specified pregnancy related conditions, first trimester (principal); N93.9 Abnormal uterine and vaginal bleeding, unspecified; O20.0 Threatened abortion; O24.911 Unspecified diabetes mellitus in pregnancy, first trimester; I10 Essential (primary) hypertension; Z3A.09 9 weeks gestation of pregnancy
CPT/HCPCS: 36415; 76830; 76856; 80053; 81003; 82962; 84702; 85025; 86850; 86900; 88305; 99284

== ENCOUNTER 2020-04-30 15:40 | Emergency (ER) | payer MEDICAID ==
[~2020-04-30] VITALS: Ht 160 cm; Wt 104.0 kg
[2020-04-30] MEDS ORDERED: ACETAMINOPHEN 325MG TABLET PO ONE (16:15)
[2020-04-30] MEDS ORDERED: SODIUM CHLORIDE 0.9% 1,000 ML IV ONE (16:15)
[2020-04-30 16:33] LABS: BASOPHILS % 0.4 % (0.0-2.0); EOSINOPHILS % 0.5 % (0.0-5.0); HEMATOCRIT. 31.6 % (36.0-48.0); HEMOGLOBIN. 10.6 g/dL (12.0-16.0); LYMPHOCYTES % 12.5 % (20.0-50.0); MEAN CORPUSCULAR HEMOGLOBIN 24.9 pg (28.0-32.0); MEAN CORPUSCULAR VOLUME 74.5 fL (81.0-99.0); MEAN PLATELET VOLUME 8.8 fl (7.4-10.4); MONOCYTES % 10.6 % (2.0-8.0); PLATELET 222 x1000/uL (130-400); RED BLOOD CELL COUNT 4.25 mill/uL (4.2-5.4); RED CELL DISTRIBUTION WIDTH 15.9 % (11.6-14.6)
[2020-04-30 16:39] LABS: CHLORIDE 103 mEq/L (98-107)
[2020-04-30 17:05] LABS: B-HCG QUANTITATIVE 431 mIU/mL (<3)
[2020-04-30 19:37] VITALS: BP 133/81
== END 2020-04-30 20:59 | disposition home or self-care (01) ==
LOC: ER 15:40
DX: O20.0 Threatened abortion (principal); O16.1 Unspecified maternal hypertension, first trimester; O24.911 Unspecified diabetes mellitus in pregnancy, first trimester; Z3A.00 Weeks of gestation of pregnancy not specified
CPT/HCPCS: 36415; 76801; 76817; 80053; 81025; 84702; 85025; 86850; 86900; 86901; 93005; 99285; J7030; 96360

== ENCOUNTER 2020-09-21 11:23 | Emergency (ER) | payer MEDICAID, OTHER ==
[~2020-09-21] VITALS: Ht 172.7 cm; Wt 100.0 kg
[2020-09-21] MEDS ORDERED: ONDANSETRON HCL 4MG/2ML INJ IV STA (12:08)
[2020-09-21] MEDS ORDERED: FAMOTIDINE 20MG/2ML VIAL IV STA (12:08)
[2020-09-21] MEDS ORDERED: SODIUM CHLORIDE 0.9% 1,000 ML IV ONE (12:15)
[2020-09-21 12:32] LABS: BASOPHILS % 0.6 % (0.0-2.0); EOSINOPHILS % 0.4 % (0.0-5.0); HEMOGLOBIN. 10.1 g/dL (12.0-16.0); LYMPHOCYTES % 19.2 % (20.0-50.0); MEAN CORPUSCULAR HEMOGLOBIN 22.2 pg (28.0-32.0); MEAN CORPUSCULAR VOLUME 70.3 fL (81.0-99.0); MEAN PLATELET VOLUME 8.4 fl (7.4-10.4); MONOCYTES % 6.5 % (2.0-8.0); NEUTROPHILS % 73.3 % (40.0-76.0); PLATELET 236 x1000/uL (130-400); RED BLOOD CELL COUNT 4.55 mill/uL (4.2-5.4); RED CELL DISTRIBUTION WIDTH 14.8 % (11.6-14.6)
[2020-09-21 12:41] LABS: CHLORIDE 105 mEq/L (98-107); INR 0.9; PROTHROMBIN TIME 10.1 sec (9.6-11.0)
[2020-09-21 12:58] LABS: CLARITY URINE CLEAR (CLEAR); COLOR URINE YELLOW (YELLOW); KETONES URINE NEGATIVE (NEGATIVE); LEUKOCYTE ESTERASE URINE NEGATIVE (NEGATIVE); NITRITE URINE NEGATIVE (NEGATIVE); OCCULT BLOOD URINE 2+ (NEGATIVE); PH URINE 7.5 (4.5-8.0); PROTEIN URINE 4+ (NEGATIVE); SPECIFIC GRAVITY URINE 1.015 (1.005-1.030); UROBILINOGEN URINE 0.2 E.U./dL (0.2-1.0)
[2020-09-21] MEDS ORDERED: MORPHINE SULFATE 4 MG/ML CPJ (NOT FOR IM USE) IV ONE ×3 (13:30→19:15)
[2020-09-21] MEDS ORDERED: MORPHINE SULFATE 4 MG/ML CPJ (NOT FOR IM USE) IV NR (15:00)
[2020-09-21] MEDS ORDERED: CEFTRIAXONE 1 G PREMIX 50 ML IV NR (15:30)
[2020-09-21] MEDS ORDERED: METRONIDAZOLE 500 MG PREMIX 100 ML IV NR (15:30)
[2020-09-21] MEDS ORDERED: HYDRALAZINE 20MG/ML VIAL IV ONE (17:30)
[2020-09-21] MEDS ORDERED: CLONIDINE 0.2MG TABLET PO ONE (18:15)
[2020-09-21 20:55] VITALS: BP 130/86
== END 2020-09-21 21:13 | disposition short-term general hospital (02) ==
LOC: ER 11:31
DX: K85.90 Acute pancreatitis without necrosis or infection, unspecified (principal); J45.909 Unspecified asthma, uncomplicated; I10 Essential (primary) hypertension; E11.9 Type 2 diabetes mellitus without complications; Z79.4 Long term (current) use of insulin
CPT/HCPCS: 36415; 74176; 76705; 80053; 81003; 81025; 83690; 85025; 85610; 93005; 96361; 96365; 96368; 96375; 96376; 99285; J0360; J0696; J2270; J2405; J3490; J7030; Z7610